=== PATIENT | male | born 1955 | race Caucasian/White ===

== ENCOUNTER 2022-11-17 09:54 | Emergency (ER) | payer MEDICARE, OTHER, SELFPAY ==
[2022-11-17 10:06] VITALS: BP 138/69; PULSE 73; RESP 14; TEMP 36.7; O2SAT 99; BMI 23.0
--- NOTE | 2022-11-17 10:52 | ED_ITS ---
HPI - Skin/Abscess/Foreign Bdy General Chief complaint: Skin/Abscess/Foreign Body Stated complaint: cut rt index finger with table saw yest Time Seen by Provider: 11/17/22 10:46 Source: patient and family (spouse) Mode of arrival: Ambulatory Limitations: no limitations History of Present Illness HPI narrative: This is a 67-year-old right-hand dominant male with no reported medical issues who presents with laceration to his 2nd finger right hand. Patient states yesterday caught his finger with a saw. Patient states there was a large chunk missing. He went to the emergency department in [facility] like he did have evaluation received a dose of IV cefazolin x-ray which showed fracture, they had wanted to transfer from potential amputation of finger the patient elected to leave but was discharged with cephalexin oral and bandaged. Patient states they did wash out in the department and he also had his tetanus updated in the department yesterday. Did obtain records they are pretty minimal but do note that patient did receive his tetanus, x-ray, some lidocaine Ancef swollen and [place] tablets. Patient states been Pyridium well controlled, he does have some association distal end he has not really been able to flex at the distal joint but states that is where he was told the fracture was. Patient states he left as he preferred not to have amputation of the finger and see if it can be t reated with wound care and follow-up. He called the orthopedic office this morning and was referred to ER for evaluation and recommendations. Patient states they have been keeping the area clean, changed his wound he states bleeding was throughout last night but has since stopped. He denies other injuries. States no daily medications denies prior surgeries. No known drug allergies. Denies tobacco, alcohol or illicit. Retired from [employer]. He is accompanied by his significant other. Related Data Allergies Allergy/AdvReac Type Severity Reaction Status Date / Time No Known Drug Allergies Allergy Verified 11/17/22 10:07 Review of Systems Review of Systems ROS Unobtainable: All systems reviewed & are unremarkable except as noted in HPI and below Patient History Social History Smoking Status: Never smoker Smoking Status: Never smoker alcohol intake frequency: 0-2 drinks per day Substance Use Type: does not use Exam Narrative Exam Narrative: GENERAL: Alert and oriented x three, well-nourished male in mild distress. HEENT: Head normocephalic, atraumatic, EOMI, pupils reactive, face symmetric, moist mucous membranes NECK: Supple, full range of motion CARDIOVASCULAR: Regular rate and rhythm without murmurs, rubs or gallops. RESPIRATORY: Breath sounds equal bilaterally, no wheezes rales or rhonchi. EXTREMITIES: Normal range of motion accept at the distal interphalangeal joint patient has difficulty with flexion extension, normal movement at the middle and proximal interphalangeal joint. Patient on examination has but a 1 x 1.5 cm area of tissue loss with all of the skin and subcutaneous tissue down to the muscle appears there may be some involvement of the tendon on the palmar side distal tip is intact. Patient has sensation to light touch. Cap refill appears to be intact in all 5 fingers. Nail is not involved, no clubbing or edema otherwise noted. Neurovascularly intact. 2+ radial pulse. Full range of mo tion of all other 4 fingers. NEUROLOGICAL: Cranial nerves II through XII grossly intact. Moving all extremities SKIN: Warm, dry, no petechiae, no rashes or lesions. Initial Vital Signs Initial Vital Signs: Vital Signs Temperature 98.1 F 11/17/22 10:06 Pulse Rate 73 11/17/22 10:06 Respiratory Rate 14 11/17/22 10:06 Blood Pressure 138/69 11/17/22 10:06 Pulse Oximetry 99 11/17/22 10:06 Oxygen Delivery Method Room Air 11/17/22 10:06 Course Orders Ordered: ED Orders 11/17/22 11:00 XR finger RT min 2V Stat Vital Signs Vital signs: Vital Signs - 8 hr 11/17/22 10:06 Temperature 98.1 F Pulse Rate 73 Respiratory Rate 14 Blood Pressure 138/69 Pulse Oximetry 99 Oxygen Delivery Method Room Air MDM - Skin/Abscess/Foreign Bdy Imaging Data Extremity x-ray #1: Radiologist's Impression: Bashir Geraldo Valencia??67??M??1955 ? Allergy/Adv: No Known Drug Allergies (More??) Close Finger X-Ray (Signed) Franklin Duran - 11/17/22 Launch?[address] [address] XRay Report Signed Patient: Geraldo Newberry MR#: [id number] : 1955 Acct:[id number] Age/Sex: 67 / M Date of Service: 11/17/22 Loc: ED Accession Number: [id number] ?? Procedure: XR finger RT min 2V Ordering Provider: Debby Regan D.O. PROCEDURE:? XR FINGER RT MIN 2V ? INDICATIONS:? 2nd finger, deep lac reported fx outsife facility ? TECHNIQUE:? AP hand, 2 views of the 2nd finger(s) acquired.? ? COMPARISON:? None. ? FINDINGS:? ? Bones:? A radiopaque bone density consistent with an avulsion fracture on the volar side of the proximal distal phalanx of the 2nd finger.? Degenerative changes of the 2nd interphalangeal joint.? No radiopaque foreign bodies. ? Soft tissues:? No suspicious soft tissue calcifications.? ? IMPRESSION:? Degenerative changes of the 2nd finger DIP joint.? An osseous density on the volar side of the DIP joint could be an avulsion fracture.? No radiopaque foreign bodies. ? ? Dictated by: Franklin Duran M.D. on 11/17/2022 at 10:47 ? ? Approved by: Franklin Duran M.D. on 11/17/2022 at 10:51?? MDM Narrative Medical decision making narrative: This is a 67-year-old male who presents with saw injury to the 2nd finger on the right with avulsion of tissue, the distal finger is intact but it is deep into the soft tissue on the palmar side with the exposure of some muscle majority seems intact. No bony exposure. Patient has a minimal movement of the distal end. He was seen yesterday at another facility ultimately left Against Medical Advice but did receive tetanus, x-ray, cefazolin and discharged home on oral Keflex. Patient has clear he does not wish for amputation there is enough tissue present that can not be closed but might heal with secondary intention and close monitoring with Orthopedic surgery. X-ray was obtained today to fully evaluate bone. Wound was reviewed, re-dressed, patient encouraged to continue Keflex which he has a script for 7 days. Spoke with orthopedic surgeon, Dr Marina: Case discussed he cautioned patient may still ultimately end up with amputation but feels appropriate plan continue Keflex, good wound care call the office Saturday to set up follow-up. Discharge Plan Departure Patient Disposition: Home Clinical Impression: Open fracture of finger Laceration of finger of right hand Qualifiers: Encounter type: subsequent encounter Finger: index finger Damage to nail status: without damage Foreign body presence: without foreign body Qualified Code(s): S61.210D - Laceration without foreign body of right index finger without damage to nail, subsequent encounter Instructions: DI for Open Fracture Activity Restrictions/Additional Instructions: Follow-up with orthopedic surgery this week, call Saturday to set up an appointment time. You have an open fracture of your finger, please continue the antibiotics prescribed cephalexin until completed. The wound on your finger may heal over time but needs close monitoring orthopedic surgery but it may ultimately require amputation Wound Care: Keep wound(s) clean and dry. Wash daily with soap and water only and pat dry. Do not use over the counter products (alcohol or peroxide)on the wounds unless instructed by a physician. You may use a small amount of triple antibiotic ointment to the affected area once daily If wound condition worsens (increased/expanding redness, developing fluid blisters, or worsening pain), either contact your doctor for an urgent re- assessment , or return to the Emergency Department. Return to the Emergency Department for any new or worsening symptoms. Return if fever greater than 100.4 Fahrenheit, increased swelling, increasing pain or worsening symptoms such as increased discharge or spreading redness. Referrals: Idalia Marina MD [Physician] - Stand Alone Forms: Patient Portal/API
--- NOTE | 2022-11-17 11:00 | DI.RAD.S_ITS ---
PROCEDURE: XR FINGER RT MIN 2V INDICATIONS: 2nd finger, deep lac reported fx outsife facility TECHNIQUE: AP hand, 2 views of the 2nd finger(s) acquired. COMPARISON: None. FINDINGS: Bones: A radiopaque bone density consistent with an avulsion fracture on the volar side of the proximal distal phalanx of the 2nd finger. Degenerative changes of the 2nd interphalangeal joint. No radiopaque foreign bodies. Soft tissues: No suspicious soft tissue calcifications. IMPRESSION: Degenerative changes of the 2nd finger DIP joint. An osseous density on the volar side of the DIP joint could be an avulsion fracture. No radiopaque foreign bodies. Dictated by: Franklin Duran M.D. on 11/17/2022 at 10:47 Approved by: Franklin Duran M.D. on 11/17/2022 at 10:51
== END 2022-11-17 11:39 | disposition home or self-care (01) ==
PROVIDERS: Emergency Provider Emergency Medicine
DX: S62.630A Displaced fracture of distal phalanx of right index finger, initial encounter for closed fracture (principal); S61.210A Laceration without foreign body of right index finger without damage to nail, initial encounter; W27.0XXA Contact with workbench tool, initial encounter
CPT/HCPCS: 73140; 99283